=== PATIENT | male | born 1975 | race Caucasian/White ===

== ENCOUNTER 2016-10-19 13:37 | Emergency (ER) | payer MEDICARE, MEDICAID ==
[2016-10-19 14:35] VITALS: BP 133/72
--- NOTE | 2016-10-19 14:48 | UC ---
Skin Complaint HPI - HPI Summary HPI Summary: 41 year old male presents with complains of a rash above his right eye secondary to a tick. - History of Current Complaint Chief Complaint: UCSkin Time Seen by Provider: 10/19/16 14:44 Stated Complaint: TICK - Allergy/Home Medications Allergies/Adverse Reactions: Allergies Allergy/AdvReac Type Severity Reaction Status Date / Time No Known Allergies Allergy Verified 10/19/16 14:21 Home Medications: Home Medications Alum & Mag Hydrox-Simethicone [Antacid Advanced 400-400-40 mg/5Ml] 1 ekaterina PO Q4H PRN 10/19/16 [History Confirmed 10/19/16] Metoprolol Succinate XL TAB* [Toprol XL TAB*] 50 mg PO DAILY 10/19/16 [History Confirmed 10/19/16] Review of Systems Constitutional: Negative Skin: Rash, Other - above right eye Eyes: Negative ENT: Negative Respiratory: Negative Cardiovascular: Negative Gastrointestinal: Negative Genitourinary: Negative Motor: Negative Neurovascular: Negative Musculoskeletal: Negative Neurological: Negative Psychological: Negative All Other Systems Reviewed And Are Negative: Yes PMH/Surg Hx/FS Hx/Imm Hx - Surgical History Surgical History: Unable to Obtain/Confirm - Social History Alcohol Use: None Substance Use Type: None, Prescribed Smoking Status (MU): Never Smoked Tobacco Physical Exam Triage Information Reviewed: Yes Vital Signs: Initial Vital Signs Temp 37.2 C 10/19/16 14:28 Pulse 83 10/19/16 14:28 Resp 20 10/19/16 14:28 BP 133/72 10/19/16 14:28 Pulse Ox 99 10/19/16 14:28 Eye Exam: Normal ENT Exam: Normal Dental Exam: Normal Neck exam: Normal Neck: Positive: 1 Respiratory Exam: Normal Cardiovascular Exam: Normal Abdominal Exam: Normal Musculoskeletal Exam: Normal Neurological Exam: Normal Psychological Exam: Normal Skin: Positive: rashes, Other - above right eye Course/Dx - Diagnoses Provider Diagnoses: tick bite above right eye Discharge - Discharge Plan Condition: Stable Disposition: HOME Prescriptions: DOXYcycline CAP(*) [DOXYcycline 100MG CAP(*)] 100 mg PO BID #[id number] cap Patient Education Materials: Insect Bite or Sting (ED), Tick Bite (ED) Referrals: Shantanu Álvarez MD [Primary Care Provider] -
== END 2016-10-19 15:00 | disposition home or self-care (01) ==
LOC: UCCORT 13:37
DX: S00.86XA Insect bite (nonvenomous) of other part of head, initial encounter (principal); W57.XXXA Bitten or stung by nonvenomous insect and other nonvenomous arthropods, initial encounter; Y93.9 Activity, unspecified; Y92.9 Unspecified place or not applicable; Y99.9 Unspecified external cause status
CPT/HCPCS: 86618; 99212; G0463